=== PATIENT | male | born 1960 | race Caucasian/White ===

== ENCOUNTER 2017-08-16 07:07 | Day surgery (SDC) | payer OTHER ==
[2017-08-16] MEDS ORDERED: Sodium Chloride 0.9% 10 ML Syringe FLUSH PRN (07:15)
[2017-08-16] MEDS ORDERED: Lactated Ringers 1,000 ML IV SCH ×2 (07:15→08:45)
[2017-08-16] MEDS ORDERED: ceFAZolin 2 GM in Premix Bag 1 BAG IV ONE (08:20)
[2017-08-16] MEDS ORDERED: Meperidine PF 75 MG/ML Syringe IV PRN (08:35)
[2017-08-16] MEDS ORDERED: HYDROmorphone 2 MG/ML SDV IVPUSH PRN (08:35)
[2017-08-16] MEDS ORDERED: Promethazine 25 MG/ML SDV IM PRN (08:35)
[2017-08-16] MEDS ORDERED: Naloxone 0.4 MG/ML SDV IVPUSH PRN (08:35)
[2017-08-16] MEDS ORDERED: Ondansetron 4 MG/2 ML SDV IVPUSH PRN (08:35)
[2017-08-16] MEDS ORDERED: Albuterol 0.083% 2.5 MG/3 ML Neb Soln NEB PRN (08:35)
[2017-08-16] MEDS ORDERED: HYDROmorphone 2 MG/ML SDV IV PRN (08:35)
[2017-08-16] MEDS ORDERED: fentaNYL 100 MCG/2 ML SDV IVPUSH PRN (08:35)
[2017-08-16] MEDS ORDERED: Lidocaine 1% with EPINEPHrine 1:100,000 20 ML MDV INFILT ONE (09:01)
[2017-08-16] MEDS ORDERED: Bupivacaine 0.5% 50 ML MDV INFILT ONE (09:01)
[2017-08-16] MEDS ORDERED: Acetaminophen/HYDROcodone 325-5 MG Tab PO PRN (09:32)
--- NOTE | 2017-08-16 09:35 | PCM.OPNOTE ---
- General Post-Op/Procedure Note Date of Surgery/Procedure: 08/16/17 Operative Procedure(s): umbilical hernia repair with mesh Findings: 2 cm defect Pre Op Diagnosis: umbilical hernia Post-Op Diagnosis: Same Anesthesia Technique: General LMA, Local (8 ml 1 % lido with epi/0.5% buvipicaine) Primary Surgeon: Laron Fernandez Anesthesia Provider: Mario Rogers Pathology: none Complications: None Condition: Good Free Text/Narrative:: see dictation
[2017-08-16] MEDS ORDERED: Ketorolac 30 MG/ML SDV IVPUSH ONE (09:45)
[2017-08-16] MEDS ORDERED: Ondansetron 4 MG/2 ML SDV IVPUSH ONE (09:45)
[2017-08-16] MEDS ORDERED: Midazolam 1 MG/ML 2 ML SDV IV ONE (09:45)
[2017-08-16] MEDS ORDERED: HYDROmorphone 2 MG/ML SDV IV ONE (09:45)
[2017-08-16] MEDS ORDERED: Lactated Ringers 1,000 ML IV ONE (09:45)
[2017-08-16] MEDS ORDERED: fentaNYL 100 MCG/2 ML SDV IV ONE (09:45)
[2017-08-16] MEDS ORDERED: Dexamethasone 4 MG/ML 5 ML MDV IVPUSH ONE (09:45)
[2017-08-16] MEDS ORDERED: Propofol 200 MG/20 ML SDV IV ONE (09:45)
--- NOTE | 2017-08-16 10:27 | OR ---
DATE OF OPERATION: 08/16/2017 SURGEON: Laron Fernandez MD PROCEDURE PERFORMED: Umbilical hernia repair with mesh. PREOPERATIVE DIAGNOSIS: Umbilical hernia. POSTOPERATIVE DIAGNOSIS: Umbilical hernia. INDICATIONS FOR PROCEDURE: This is a 56-year-old white male with an umbilical hernia. It has been causing him some pain and discomfort and he was offered and accepted repair. INTRAOPERATIVE FINDINGS: 2 cm defect was noted. This was repaired with a Ventralex ST Hernia Patch, 8 cm in diameter, reference #[id number], lot number [id number] with a use by date of 2019-02-10 and a total of 8 mL of 1:1 mixture of 1% lidocaine with epinephrine and 0.5% bupivacaine was used. DESCRIPTION OF OPERATION: After an excellent general and LMA anesthetic was administered, the patient was prepped and draped in usual sterile manner. A local was used to infiltrate the area around the umbilicus and a curvilinear incision was made at the base of the umbilicus. Blunt dissection was carried out dissecting the hernia sac free from the surrounding structures. The hernia sac was then entered and was transected from the base of the hernia at the anterior abdominal wall. After developing a flat plane, the mesh was inserted and several tacks were placed superiorly and inferiorly to aid with adhesion and then the defect was closed with interrupted 0 Ethibond incorporating our tails which were then excised. The umbilicus was then tacked to the anterior abdominal wall after irrigating the wound, this was done with an 0 Vicryl. The skin was then closed with isabel. Needle, sponge, and instrument counts were reported as correct. The patient was taken to recovery room in good condition. /[id number] /MODL
== END 2017-08-16 12:07 | disposition home or self-care (01) ==
LOC: FB.SDS 07:07
PROVIDERS: ATTEND Surgery
DX: K42.9 Umbilical hernia without obstruction or gangrene (principal); J18.9 Pneumonia, unspecified organism; Z87.891 Personal history of nicotine dependence; Z79.899 Other long term (current) drug therapy
CPT/HCPCS: 49585; A9270; C1781; J0690; J1100; J1170; J1885; J2250; J2405; J2704; J3010; J7120